=== PATIENT | female | born 1975 ===

== ENCOUNTER 2024-09-15 07:33 | Outpatient (CLI) | payer OTHER, SELFPAY | END 2024-09-15 07:34 | disposition home or self-care (01) | LOC: ANHVASCINF 07:37 | PROVIDERS: PCP Physician Assistant; Visit Provider Pain Medicine Pain Medicine | DX: Z01.10 Encounter for examination of ears and hearing without abnormal findings (principal) | CPT/HCPCS: 99212; G0463 ==